=== PATIENT | female | born 1980 | race American Indian/Alaskan Native ===

== ENCOUNTER 2019-01-30 13:45 | Emergency (ER) | payer MEDICAID, OTHER ==
--- NOTE | 2019-01-30 14:00 | Emergency Department Report ---
Blank Doc - Documentation Documentation: This is a 38-year-old female that presents with URI symptoms. This initial assessment/diagnostic orders/clinical plan/treatment(s) is/are subject to change based on patient's health status, clinical progression and re- assessment by fellow clinical providers in the ED. Further treatment and workup at subsequent clinical providers discretion. Patient/guardians urged not to elope from the ED as their condition may be serious if not clinically assessed and managed. Initial orders include: 1- Patient sent to [facility] for further evaluation and treatment 2- CXR
--- NOTE | 2019-01-30 14:35 | XRay Report ---
ROUTINE CHEST, TWO VIEWS: HISTORY: Cough. The trachea, heart, mediastinal contour, lung ramos and bony thorax are unremarkable. IMPRESSION: Unremarkable chest x-ray.
[2019-01-30] MEDS ORDERED: TESSALON PERLES PO ONE (16:22)
[2019-01-30] MEDS ORDERED: LEVAQUIN PO ONE (16:22)
--- NOTE | 2019-01-30 16:31 | Emergency Department Report ---
Minor Respiratory - HPI Duration: 2 weeks Severity: moderate Minor Respiratory: Yes Sore Throat, Yes Able to Tolerate Fluids, Yes Cough, No Rhinorrhea, No Sick Contacts, No Hemoptysis, No Chest Pain, No Shortness of Breath, No Fever Other History: Ms. Zimmerman is a 38 yo female who presents with productive cough greem sputum for 2 weeks. Hx of tobacco abuse and asthma. January 01, underwent stem cell treatment for back and hip injuries. Nagging cough is her main concern with raspy voice. Upon further history, Ms. Zimmerman stated that she arrived per EMS for shortness of breath. She has hx of LLE DVT which required admission for heparin in the past. She has notices hand and feet swelling. <TIAGO OKEEFE - Last Filed: 01/30/19 16:41> <ELIS BERNARD - Last Filed: 01/30/19 19:29> - HPI Chief Complaint: Chest Pain Stated Complaint: FLU LIKE SYM/CHEST PAIN Time Seen by Provider: 01/30/19 13:52 ED Review of Systems ROS: Stated complaint: FLU LIKE SYM/CHEST PAIN Other details as noted in HPI Comment: All other systems reviewed and negative Constitutional: denies: fever, malaise ENT: throat pain Respiratory: cough. denies: wheezing Gastrointestinal: denies: abdominal pain, nausea, vomiting <TIAGO OKEEFE - Last Filed: 01/30/19 16:41> ROS: Stated complaint: FLU LIKE SYM/CHEST PAIN Other details as noted in HPI <ELIS BERNARD - Last Filed: 01/30/19 19:29> ED Past Medical Hx - Past Medical History Previous Medical History?: Yes Hx Hypertension: Yes Hx Asthma: Yes - Surgical History Past Surgical History?: Yes Additional Surgical History: hernia - Social History Smoking Status: Never Smoker Substance Use Type: None <TIAGO OKEEFE - Last Filed: 01/30/19 16:41> <ELIS BERNARD - Last Filed: 01/30/19 19:29> - Medications Home Medications: Home Medications Medication Instructions Recorded Confirmed Last Taken Type Benzonatate [Tessalon Perle] 100 mg PO TID PRN #20 capsule 01/30/19 Unknown Rx levoFLOXacin [Levaquin] 750 mg PO QDAY 5 Days #5 tablet 01/30/19 Unknown Rx Minor Respiratory Exam - Exam General: Vital signs noted. No distress. Alert and acting appropriately. General: Well-appearing, no acute distress, frequent cough HEENT: Normocephalic atraumatic pupils equal round and reactive to light anicteric sclera Nose: no rhinorrhea Oropharynx: Clear mucous membranes no lesions Neck: supple, no meningismus Chest: Clear to auscultation bilaterally no rales rhonchi no wheezes Cardiac: Tachycardic regular rhythm no murmurs no rubs no gallops Abdomen: Soft nontender nondistended positive bowel sounds no guarding Extremities: No cyanosis no clubbing no edema Neuro: Moves all extremities 4, no gross deficits Psychiatric: Alert and oriented 4 normal affect normal judgment normal insight HEENT: Yes Moist Mucous Membranes, No Pharyngeal Erythema, No Pharyngeal Exudates, No Rhinorrhea, No Conjuctival Injection, No Frontal Tenderness, No Maxillary Tenderness Neck: Yes Supple, No Adenopathy Lungs: Yes Good Air Exchange, No Wheezes, No Ronchi, No Stridor, No Cough, No Labored Respirations, No Retractions, No Use of Accessory Muscles, No Other Abnormal Lung Sounds Heart: Yes Regular, No Murmur Abdomen: Yes Normal Bowel Sounds, No Tenderness, No Peritoneal Signs Skin: No Rash, No Edema Neurologic: Alert and oriented, no deficits. Musculoskeletal: Unremarkable. <TIAGO OKEEFE - Last Filed: 01/30/19 16:41> - Exam General: Vital signs noted. No distress. Alert and acting appropriately. Neurologic: Alert and oriented, no deficits. Musculoskeletal: Unremarkable. <ELIS BERNARD - Last Filed: 01/30/19 19:29> ED Course Vital Signs 01/30/19 01/30/19 14:01 15:20 Temperature 98.7 F Pulse Rate 100 H 117 H Respiratory 16 21 Rate Blood Pressure 164/106 157/95 [Left] O2 Sat by Pulse 98 99 Oximetry <TIAGO OKEEFE - Last Filed: 01/30/19 16:41> Vital Signs 01/30/19 01/30/19 01/30/19 14:01 15:20 19:04 Temperature 98.7 F Pulse Rate 100 H 117 H 98 H Respiratory 16 21 20 Rate Blood Pressure 164/106 157/95 156/99 [Left] O2 Sat by Pulse 98 99 98 Oximetry <ELIS BERNARD - Last Filed: 01/30/19 19:29> ED Medical Decision Making - EKG Data 01/30/19 16:41 EKG obtained 1356 Sinus tachycardia rate 110 beats a minute left axis deviation diffuse T-wave flattening right bundle branch block no ST elevation - Radiology Data Radiology results: report reviewed Chest x-ray: No acute process according to radiology report - Medical Decision Making With history of DVT tachycardia and recent surgery for a stem cell implantation, will obtain CTAngio chest, to rule out pulmonary embolism. Otherwise I suspect acute broncithis, antibiotics are indicated with history of tobacco abuse. If CTA is negative I anticipate discharged home with prescription for Levaquin and Tessalon Perles <TIAGO OKEEFE - Last Filed: 01/30/19 16:41> - Lab Data Result diagrams: 01/30/19 16:49 01/30/19 16:49 - Medical Decision Making Nurse asked for something for a BARRETT for the patient, pt was given toradol 30 mg, with benadryl, pt did not have any reaction, no rash, no SOB, no sensation of throat closing. Advised pt to continue to watch for any reaction and return to ED immediately. Pt states she is feeling much better. VSS. S/o from Dr. Okeefe, Pt CTA of the chest shows no acute process. CXR with no PNA present. Sx appear consistent with Dr. Okeefe' findings of acute bronchitis. Pt given levaquin and tessalon pearls. Advised pt to be seen in the next 2 days by her PCP. Advised pt if begin experiencing SOB, worsening cough, or fever return to the ED immediately. <ELIS BERNARD - Last Filed: 01/30/19 19:29> Critical care attestation.: If time is entered above; I have spent that time in minutes in the direct care of this critically ill patient, excluding procedure time. <TIAGO OKEEFE - Last Filed: 01/30/19 16:41> Critical care attestation.: If time is entered above; I have spent that time in minutes in the direct care of this critically ill patient, excluding procedure time. <ELIS BERNARD - Last Filed: 01/30/19 19:29> ED Disposition <TIAGO OKEEFE - Last Filed: 01/30/19 16:41> Is pt being admited?: No Does the pt Need Aspirin: No Time of Disposition: 19:29 <ELIS BERNADR - Last Filed: 01/30/19 19:29> Clinical Impression: Acute bronchitis Qualifiers: Bronchitis organism: unspecified organism Qualified Code(s): J20.9 - Acute bronchitis, unspecified Disposition: - TO HOME OR SELFCARE Condition: Stable Instructions: Acute Bronchitis (ED) Prescriptions: levoFLOXacin [Levaquin] 750 mg PO QDAY 5 Days #5 tablet Benzonatate [Tessalon Perle] 100 mg PO TID PRN #20 capsule PRN Reason: Cough Referrals: KINGSLEY WILSON MD [Referring] - [facility] Print Language: KYRGYZ
[2019-01-30] MEDS ORDERED: ZOFRAN ODT PO ONE (16:44)
[2019-01-30] MEDS ORDERED: ZOFRAN ODT ONE (16:45)
[2019-01-30 17:04] LABS: Basophils # (Auto) 0.1 K/mm3 (0.0-0.1); Eosinophils # (Auto) 0.2 K/mm3 (0.0-0.4); Eosinophils % (Auto) 2.6 % (0.0-4.3); Hematocrit 34.4 % (30.3-42.9); Hemoglobin 10.7 gm/dl (10.1-14.3); Lymphocytes # (Auto) 2.4 K/mm3 (1.2-5.4); Lymphocytes % (Auto) 33.8 % (13.4-35.0); Mean Corpuscular HGB Conc 31 % (30-34); Mean Corpuscular Volume 77 fl (79-97); Monocytes # (Auto) 0.6 K/mm3 (0.0-0.8); Monocytes % (Auto) 7.9 % (0.0-7.3); Platelet Count 236 K/mm3 (140-440); Red Blood Count 4.49 M/mm3 (3.65-5.03); Red Cell Distribution Width 16.6 % (13.2-15.2)
[2019-01-30 17:21] LABS: BUN/Creatinine Ratio 14; Blood Urea Nitrogen 7 mg/dL (7-17); Hemolysis Index 48
[2019-01-30] MEDS ORDERED: PHENERGAN/CODEINE 6.25-10 MG/5ML PO ONE (18:02)
[2019-01-30] MEDS ORDERED: TORADOL IV ONE (18:53)
[2019-01-30] MEDS ORDERED: BENADRYL ONE (19:02)
[2019-01-30 19:05] VITALS: BP 156/99
[2019-01-30] MEDS ORDERED: BENADRYL IV ONE (19:05)
--- NOTE | 2019-01-30 19:15 | Cat Scan Report ---
PROCEDURE: CT ANGIO CHEST HISTORY: dyspnea chest pain hx of DVT FINDINGS: Contrast-enhanced CT angiography of the chest was performed following the intravenous admin istration of iodinated contrast. Sagittal and coronal MIP three-dimensional reformatted images were g enerated. These images demonstrate no CT evidence of pulmonary thromboembolic disease. There is no aortic disse ction. There is bibasilar linear atelectasis. There is no acute consolidative pulmonary infiltrate. There is a relatively large hiatal hernia. In the upper abdomen the adrenal glands are within normal limits. There is fatty infiltration of the liver. IMPRESSION: No CT evidence of pulmonary thromboembolic disease Hiatal hernia This document is electronically signed by Steve Reyes MD., January 30 2019 07:13:13 PM ET
== END 2019-01-30 19:45 | disposition home or self-care (01) ==
LOC: ED 13:45
DX: J20.9 Acute bronchitis, unspecified (principal); I10 Essential (primary) hypertension; Z88.6 Allergy status to analgesic agent
CPT/HCPCS: 36415; 71046; 71275; 80048; 85025; 93005; 93010; 96374; 96375; 99285; J1200; J1885; Q9967; Q0162